=== PATIENT | male | born 1960 | race Caucasian/White ===

== ENCOUNTER 2017-05-29 16:13 | Emergency (ER) | payer MEDICAID ==
--- NOTE | 2017-05-29 16:47 | EDM.PDOC ---
ED HPI GENERAL MEDICAL PROBLEM - General Chief Complaint: Lower Extremity Injury/Pain Stated Complaint: RIGHT ANKLE PAIN FROM FALL Time Seen by Provider: 05/29/17 16:46 Source of Information: Reports: Patient - History of Present Illness INITIAL COMMENTS - FREE TEXT/NARRATIVE: HISTORY AND PHYSICAL: History of present illness: [Patient walking near a local bank on apparently uneven sidewalk, he slipped and fell twisting his ankle unable to bear weight due to this time no head injury or loss of consciousness No fever nausea vomiting chills sweats ] Review of systems: As per history of present illness and below otherwise all systems reviewed and negative. Past medical history: As per history of present illness and as reviewed below otherwise noncontributory. Surgical history: As per history of present illness and as reviewed below otherwise noncontributory. Social history: No reported history of drug or alcohol abuse. Family history: As per history of present illness and as reviewed below otherwise noncontributory. Physical exam: HEENT: Atraumatic, normocephalic, pupils reactive, negative for conjunctival pallor or scleral icterus, mucous membranes moist, throat clear, neck supple, nontender, trachea midline. Lungs: Clear to auscultation, breath sounds equal bilaterally, chest nontender. Heart: S1S2, regular, negative for clicks, rubs, or JVD. Abdomen: Soft, nondistended, nontender. Negative for masses or hepatosplenomegaly. Negative for costovertebral tenderness. Pelvis: Stable nontender. Genitourinary: Deferred. Rectal: Deferred. Extremities: Atraumatic, negative for cords or calf pain. Neurovascular unremarkable. Neuro: Awake, alert, oriented. Cranial nerves II through XII unremarkable. Cerebellum unremarkable. Motor and sensory unremarkable throughout. Exam nonfocal. Left lower extremity: Hip and knee unaffected mild swelling and tenderness over lateral malleolus he does have pain across the dorsum of the foot pulses 2+ with normal capillary refill Entire limb is neurovascularly intact Diagnostics: []Left ankle 3 views Left foot 3 views Therapeutics: []Rest ice ibuprofen Cam boot crutches nonweightbearing Impression: []L ankle pain Definitive disposition and diagnosis as appropriate pending reevaluation and review of above. Left Ankle Pain Score (Numeric/FACES): 9 - Related Data Allergies Allergy/AdvReac Type Severity Reaction Status Date / Time No Known Allergies Allergy Verified 05/29/17 16:45 Home Meds: Home Meds Gabapentin [Neurontin] 600 mg PO TID 05/29/17 [History] traZODone HCl [Trazodone HCl] 150 mg PO BEDTIME 05/29/17 [History] Review of Systems - Review of Systems Review Of Systems: ROS reveals no pertinent complaints other than HPI. ED EXAM, GENERAL - Physical Exam Exam: See Below Course - Vital Signs Last Recorded V/S: Last Vital Signs Temp 98.5 F 05/29/17 16:40 Pulse 78 05/29/17 16:40 Resp 20 05/29/17 16:40 BP 128/92 H 05/29/17 16:40 Pulse Ox 98 05/29/17 16:40 - Orders/Labs/Meds Orders: Active Orders 24 hr Category Date Time Status Ankle Min 3V Lt [CR] Stat Exams 05/29/17 16:46 Taken Foot Comp Min 3V Lt [CR] Stat Exams 05/29/17 16:48 Taken Departure - Departure Time of Disposition: 18:00 Disposition: Home, Self-Care 01 Condition: Good Clinical Impression: Ankle sprain - Discharge Information Referrals: PCP,None [Primary Care Provider] - Forms: ED Department Discharge Additional Instructions: Rest Ice 20 minute intervals 3 times daily as needed Ibuprofen 400-800 mg 3 times daily 7-10 days Cam boot crutches nonweightbearing Follow-up with orthopedist in 2 weeks call for appropriate follow-up at [facility] [address], [address] [place] [address] my orthopedic The following information is given to patients seen in the emergency department who are being discharged to home. This information is to outline your options for follow-up care. We provide all patients seen in our emergency department with a follow-up referral. The need for follow-up, as well as the timing and circumstances, are variable depending upon the specifics of your emergency department visit. If you don't have a primary care physician on staff, we will provide you with a referral. We always advise you to contact your personal physician following an emergency department visit to inform them of the circumstance of the visit and for follow-up with them and/or the need for any referrals to a consulting specialist. The emergency department will also refer you to a specialist when appropriate. This referral assures that you have the opportunity for follow-up care with a specialist. All of these measure are taken in an effort to provide you with optimal care, which includes your follow-up. Under all circumstances we always encourage you to contact your private physician who remains a resource for coordinating your care. When calling for follow-up care, please make the office aware that this follow-up is from your recent emergency room visit. If for any reason you are refused follow-up, please contact the [facility] emergency department at and asked to speak to the emergency department charge nurse. - My Orders Last 24 Hours: My Active Orders 05/29/17 16:46 Ankle Min 3V Lt [CR] Stat 05/29/17 16:48 Foot Comp Min 3V Lt [CR] Stat - Assessment/Plan Last 24 Hours: My Active Orders 05/29/17 16:46 Ankle Min 3V Lt [CR] Stat 05/29/17 16:48 Foot Comp Min 3V Lt [CR] Stat
--- NOTE | 2017-05-30 08:44 | CR ---
EXAM DATE: 05/29/17 PATIENT'S AGE: 57 Patient: CL ALMANZA Facility: [place], [place] Site . Site : 1960 Study: XRay Extremity Left [id number]/13/2017 5:06:44 PM Ordering Physician: Stan Sandoval Final Report: INDICATION: Ankle Pain. Tripped on curb TECHNIQUE: Ankle radiograph 3 views left COMPARISON: None FINDINGS: Bones: Alignment is normal. No acute fractures or aggressive bone lesions identified. Joint spaces: Unremarkable. No ankle joint effusion is seen. Soft tissues: Unremarkable. No radiopaque foreign bodies are seen. IMPRESSION: 1. No acute osseous injuries are noted. Dictated by: Daniele Weiss MD @ 05/29/2017 17:19:19 (Electronic Signature) Report Signed by Proxy. [facility]
--- NOTE | 2017-05-30 08:45 | CR ---
EXAM DATE: 05/29/17 PATIENT'S AGE: 57 Patient: CL ALMANZA Facility: [place], [place] Site . Site : 1960 Study: XRay Extremity Left Foot [id number]/13/2017 5:07:25 PM Ordering Physician: Stan Sandoval Final Report: INDICATION: Foot Pain. Tripped on curb TECHNIQUE: Foot radiograph 3 views left COMPARISON: None FINDINGS: Bones: Alignment is normal. No acute fractures or aggressive bone lesions identified. Moderate diffuse osteopenia is noted. Joint spaces: Unremarkable. No ankle effusion is seen. Soft tissues: Unremarkable. Kager`s fat pad is normal in appearance. The visualized Achilles` tendon is unremarkable. No radiopaque foreign bodies are seen. IMPRESSION: 1. No acute osseous injuries are noted. Dictated by: Daniele Weiss MD @ 05/29/2017 17:21:08 (Electronic Signature) Report Signed by Proxy. NEAL
== END 2017-05-29 18:21 | disposition home or self-care (01) ==
LOC: MW.ED 16:13
DX: S93.402A Sprain of unspecified ligament of left ankle, initial encounter (principal); W19.XXXA Unspecified fall, initial encounter
CPT/HCPCS: 73610-26-LT; 73610-LT; 73630-26-LT; 73630-LT; 99283

== ENCOUNTER 2017-11-03 15:31 | Observation (INO) | payer MEDICAID ==
[2017-11-03] MEDS ORDERED: Sodium Chloride 0.9% 10 ML Syringe FLUSH PRN ×2 (15:33→19:10)
[2017-11-03] MEDS ORDERED: Sodium Chloride 0.9% 2.5 ML Syringe FLUSH PRN ×2 (15:33→19:10)
--- NOTE | 2017-11-03 15:35 | EDM.PDOC ---
ED HPI GENERAL MEDICAL PROBLEM - General Stated Complaint: LT GOING MUNB Time Seen by Provider: 11/03/17 16:45 - History of Present Illness INITIAL COMMENTS - FREE TEXT/NARRATIVE: HISTORY AND PHYSICAL: History of present illness: Patient's 57-year-old white male with history of chronic pain syndrome with current meds include gabapentin and trazodone presents with a concern of left- sided hemiparesthesia 1 day he has no weakness he denies any visual disturbances denies chest pain shortness breath nausea vomiting trauma or other concern. Review of systems: As per history of present illness and below otherwise all systems reviewed and negative. Past medical history: As per history of present illness and as reviewed below otherwise noncontributory. Surgical history: As per history of present illness and as reviewed below otherwise noncontributory. Social history: No reported history of drug or alcohol abuse. Family history: As per history of present illness and as reviewed below otherwise noncontributory. Physical exam: HEENT: Atraumatic, normocephalic, pupils reactive, negative for conjunctival pallor or scleral icterus, mucous membranes moist, throat clear, neck supple, nontender, trachea midline. Lungs: Clear to auscultation, breath sounds equal bilaterally, chest nontender. Heart: S1S2, regular, negative for clicks, rubs, or JVD. Abdomen: Soft, nondistended, nontender. Negative for masses or hepatosplenomegaly. Negative for costovertebral tenderness. Pelvis: Stable nontender. Genitourinary: Deferred. Rectal: Deferred. Extremities: Atraumatic, negative for cords or calf pain. Neurovascular unremarkable. Neuro: Awake, alert, oriented. Cranial nerves II through XII unremarkable. Cerebellum unremarkable. Motor and sensory unremarkable throughout. Exam nonfocal. Diagnostics: CBC CMP troponin PT/INR UA urine drug screen prolactin EKG chest x-ray CT brain Therapeutics: IV O2 monitor Impression: #1 left hemiparesthesia #2 chronic pain syndrome Definitive disposition and diagnosis as appropriate pending reevaluation and review of above. - Related Data Allergies Allergy/AdvReac Type Severity Reaction Status Date / Time No Known Allergies Allergy Verified 05/29/17 16:45 Home Meds: Home Meds Gabapentin [Neurontin] 600 mg PO TID 05/29/17 [History] traZODone HCl [Trazodone HCl] 150 mg PO BEDTIME 05/29/17 [History] Past Medical History HEENT History: Reports: None Cardiovascular History: Reports: None Respiratory History: Reports: None Gastrointestinal History: Reports: None Genitourinary History: Reports: BPH Neurological History: Reports: Concussion Psychiatric History: Reports: Depression Endocrine/Metabolic History: Reports: None Hematologic History: Reports: None Immunologic History: Reports: None Oncologic (Cancer) History: Reports: None Dermatologic History: Reports: None - Infectious Disease History Infectious Disease History: Reports: None - Past Surgical History Head Surgeries/Procedures: Reports: None Male Surgical History: Reports: None Other Musculoskeletal Surgeries/Procedures:: plated in neck and broken back Social & Family History - Caffeine Use Caffeine Use: Reports: Coffee, Soda, Tea ED ROS GENERAL - Review of Systems Review Of Systems: ROS reveals no pertinent complaints other than HPI. ED EXAM, GENERAL - Physical Exam Exam: See Below (See dictation) Course - Orders/Labs/Meds Orders: Active Orders 24 hr Category Date Time Status Cardiac Monitoring [RC] . DIRECTED Care 11/03/17 15:32 Active EKG Documentation Completion [RC] STAT Care 11/03/17 15:32 Active Oxygen Therapy, ED [RC] ASDIRECTED Care 11/03/17 15:32 Active Pulse Oximetry [RC] ASDIRECTED Care 11/03/17 15:32 Active Chest 1V Frontal [CR] Stat Exams 11/03/17 15:33 Taken Head wo Cont [CT] Stat Exams 11/03/17 15:33 Taken COMPREHENSIVE METABOLIC PN,CMP [CHEM] Stat Lab 11/03/17 16:12 Results DRUG SCREEN, URINE [URCHEM] Stat Lab 11/03/17 15:33 Ordered ETHANOL BLOOD MEDICAL [CHEM] Stat Lab 11/03/17 16:12 Results PROLACTIN [CHEM] Stat Lab 11/03/17 16:12 Results TROPONIN I [CHEM] Stat Lab 11/03/17 16:12 Results UA W/MICROSCOPIC [URIN] Stat Lab 11/03/17 15:33 Ordered Sodium Chloride 0.9% [Normal Saline] 1,000 ml Med 11/03/17 15:45 Active IV STAT Sodium Chloride 0.9% [Saline Flush] Med 11/03/17 15:33 Active 10 ml FLUSH ASDIRECTED PRN Sodium Chloride 0.9% [Saline Flush] Med 11/03/17 15:33 Active 2.5 ml FLUSH ASDIRECTED PRN Saline Lock Insert [OM.PC] Stat Oth 11/03/17 15:32 Ordered Medication Orders Sodium Chloride (Normal Saline) 1,000 mls @ 125 mls/hr IV STAT TRISTEN Last Admin: 11/03/17 16:34 Dose: 125 mls/hr Sodium Chloride (Saline Flush) 10 ml FLUSH ASDIRECTED PRN PRN Reason: Keep Vein Open Sodium Chloride (Saline Flush) 2.5 ml FLUSH ASDIRECTED PRN PRN Reason: Keep Vein Open Labs: Laboratory Tests 11/03/17 11/03/17 11/03/17 Range/Units 16:12 16:12 16:12 WBC 6.21 (4.0-11.0) K/uL RBC 5.80 (4.50-5.90) M/uL Hgb 16.1 (13.0-17.0) g/dL Hct 47.6 (38.0-50.0) % MCV 82.1 (80.0-98.0) fL MCH 27.8 (27.0-32.0) pg MCHC 33.8 (31.0-37.0) g/dL RDW Std Deviation 45.8 (28.0-62.0) fl RDW Coeff of Lola 16 H (11.0-15.0) % Plt Count 195 (150-400) K/uL MPV 9.60 (7.40-12.00) fL Neut % (Auto) 58.2 (48.0-80.0) % Lymph % (Auto) 28.3 (16.0-40.0) % [place] % (Auto) 10.3 (0.0-15.0) % Eos % (Auto) 2.7 (0.0-7.0) % Baso % (Auto) 0.5 (0.0-1.5) % Neut # (Auto) 3.6 (1.4-5.7) K/uL Lymph # (Auto) 1.8 (0.6-2.4) K/uL [place] # (Auto) 0.6 (0.0-0.8) K/uL Eos # (Auto) 0.2 (0.0-0.7) K/uL Baso # (Auto) 0.0 (0.0-0.1) K/uL Nucleated RBC % 0.0 /100WBC Nucleated RBCs # 0 K/uL INR 1.02 Sodium 137 (136-148) mmol/L Potassium 4.3 (3.5-5.1) mmol/L Chloride 103 (98-107) mmol/L Carbon Dioxide 29.7 (21.0-32.0) mmol/L BUN 13 (7.0-18.0) mg/dL Creatinine 1.1 (0.8-1.3) mg/dL Est Cr Clr Drug Dosing TNP Estimated GFR (MDRD) > 60.0 ml/min Glucose 79 (74-106) mg/dL Calcium 9.0 (8.5-10.1) mg/dL Total Bilirubin 0.6 (0.2-1.0) mg/dL AST 17 (15-37) IU/L ALT 17 (14-63) IU/L Alkaline Phosphatase 88 (46-116) U/L Troponin I < 0.050 (0.000-0.056) ng/mL Total Protein 7.6 (6.4-8.2) g/dL Albumin 4.1 (3.4-5.0) g/dL Globulin 3.5 (2.0-3.5) g/dL Albumin/Globulin Ratio 1.2 L (1.3-2.8) Ethyl Alcohol < 3.0 mg/dL Meds: Medications Generic Name Dose Route Start Last Admin Trade Name Freq PRN Reason Stop Dose Admin Sodium Chloride 1,000 mls @ 125 mls/hr 11/03/17 15:45 11/03/17 16:34 Normal Saline IV 125 mls/hr STAT TRISTEN Administration Sodium Chloride 10 ml 11/03/17 15:33 Saline Flush FLUSH ASDIRECTED PRN Keep Vein Open Sodium Chloride 2.5 ml 11/03/17 15:33 Saline Flush FLUSH ASDIRECTED PRN Keep Vein Open Departure - Departure Time of Disposition: 16:45 Disposition: Refer to Observation Condition: Good Clinical Impression: Hemiparesthesia, Chronic pain syndrome - Discharge Information - My Orders Last 24 Hours: My Active Orders 11/03/17 15:32 Cardiac Monitoring [RC] . DIRECTED EKG Documentation Completion [RC] STAT Oxygen Therapy, ED [RC] ASDIRECTED Pulse Oximetry [RC] ASDIRECTED Saline Lock Insert [OM.PC] Stat 11/03/17 15:33 Chest 1V Frontal [CR] Stat Head wo Cont [CT] Stat DRUG SCREEN, URINE [URCHEM] Stat UA W/MICROSCOPIC [URIN] Stat Sodium Chloride 0.9% [Saline Flush] 10 ml FLUSH ASDIRECTED PRN Sodium Chloride 0.9% [Saline Flush] 2.5 ml FLUSH ASDIRECTED PRN 11/03/17 15:45 Sodium Chloride 0.9% [Normal Saline] 1,000 ml IV STAT 11/03/17 16:12 COMPREHENSIVE METABOLIC PN,CMP [CHEM] Stat ETHANOL BLOOD MEDICAL [CHEM] Stat PROLACTIN [CHEM] Stat TROPONIN I [CHEM] Stat - Assessment/Plan Last 24 Hours: My Active Orders 11/03/17 15:32 Cardiac Monitoring [RC] . DIRECTED EKG Documentation Completion [RC] STAT Oxygen Therapy, ED [RC] ASDIRECTED Pulse Oximetry [RC] ASDIRECTED Saline Lock Insert [OM.PC] Stat 11/03/17 15:33 Chest 1V Frontal [CR] Stat Head wo Cont [CT] Stat DRUG SCREEN, URINE [URCHEM] Stat UA W/MICROSCOPIC [URIN] Stat Sodium Chloride 0.9% [Saline Flush] 10 ml FLUSH ASDIRECTED PRN Sodium Chloride 0.9% [Saline Flush] 2.5 ml FLUSH ASDIRECTED PRN 11/03/17 15:45 Sodium Chloride 0.9% [Normal Saline] 1,000 ml IV STAT 11/03/17 16:12 COMPREHENSIVE METABOLIC PN,CMP [CHEM] Stat ETHANOL BLOOD MEDICAL [CHEM] Stat PROLACTIN [CHEM] Stat TROPONIN I [CHEM] Stat
[2017-11-03] MEDS ORDERED: Sodium Chloride 0.9% 1,000 ML IV SCH (15:45)
[2017-11-03 16:38] LABS: CHLORIDE,CL 103 mmol/L (98-107); SODIUM,NA 137 mmol/L (136-148)
[2017-11-03] MEDS ORDERED: Albuterol/Ipratropium 3.0-0.5 MG/3 ML Neb Soln NEB PRN (19:10)
[2017-11-03] MEDS ORDERED: Morphine 10 MG/ML Syringe IVPUSH PRN (19:10)
[2017-11-03] MEDS ORDERED: Ondansetron 4 MG/2 ML SDV IVPUSH PRN (19:10)
[2017-11-03] MEDS ORDERED: Enoxaparin 40 MG/0.4 ML Syringe SUBCUT SCH (19:15)
--- NOTE | 2017-11-03 19:17 | PCM.HP ---
H&P History of Present Illness - General Date of Service: 11/03/17 Admit Problem/Dx: Admission Diagnosis/Problem Admission Diagnosis/Problem Hemiparesthesia Source of Information: Patient History Limitations: Reports: Other (patient is poor historian) - History of Present Illness Initial Comments - Free Text/Narative: Patient 57 y old male presented to office due to left sided weakness that started yesterday around 2 pm 4/10 intensity localized left side of face and left arm and left lower extremity and lasted throughout the night. Patient denies similar symptoms in the past , no muscle weakness , no blurry vision or trouble speaking. Has mild headache now , says he does not suffer from migraine headache. Patient had a neck surgery and steel plate in the neck 20 y ago, status post slip and fall.Denies trauma on the left side Duration of Symptoms: Reports: Hour(s): Left Upper Pain Score (Numeric/FACES): 0 - Related Data Allergies/Adverse Reactions: Allergies Allergy/AdvReac Type Severity Reaction Status Date / Time No Known Allergies Allergy Verified 05/29/17 16:45 Home Medications: Home Meds Gabapentin [Neurontin] 600 mg PO TID 05/29/17 [History] traZODone HCl [Trazodone HCl] 150 mg PO BEDTIME 05/29/17 [History] Aspirin 325 mg PO DAILY tablet 11/04/17 [Rx] Nicotine [Habitrol] 14 mg TRDERM DAILY #10 patch 11/04/17 [Rx] atorvaSTATin [Lipitor] 40 mg PO BEDTIME #30 tablet 11/04/17 [Rx] Past Medical History HEENT History: Reports: None Cardiovascular History: Reports: None Respiratory History: Reports: None Gastrointestinal History: Reports: None Genitourinary History: Reports: BPH Neurological History: Reports: Concussion Psychiatric History: Reports: Depression Endocrine/Metabolic History: Reports: None Hematologic History: Reports: None Immunologic History: Reports: None Oncologic (Cancer) History: Reports: None Dermatologic History: Reports: None - Infectious Disease History Infectious Disease History: Reports: None - Past Surgical History Head Surgeries/Procedures: Reports: None Male Surgical History: Reports: None Endocrine Surgical History: Reports: None Other Musculoskeletal Surgeries/Procedures:: plate in neck and broken back Social & Family History - Family History Family Medical History: Noncontributory - Tobacco Use Smoking Status *Q: Current Some Day Smoker Years of Tobacco use: 47 Packs/Tins Daily: 0.5 Used Tobacco, but Quit: No Second Hand Smoke Exposure: No - Caffeine Use Caffeine Use: Reports: Coffee, Soda, Tea - Alcohol Use Date of Last Drink: 10/31/17 - Recreational Drug Use Recreational Drug Use: Yes Drug Use in Last 12 Months: Yes Recreational Drug Type: Reports: Marijuana/Hashish Recreational Drug Use Frequency: Weekly Recreational Drug Last Use: t-1 H&P Review of Systems - Review of Systems: Review Of Systems: See Below General: Reports: No Symptoms HEENT: Reports: No Symptoms Pulmonary: Reports: No Symptoms Cardiovascular: Reports: No Symptoms Gastrointestinal: Reports: No Symptoms Genitourinary: Reports: No Symptoms Musculoskeletal: Reports: No Symptoms Skin: Reports: No Symptoms Psychiatric: Reports: No Symptoms Neurological: Reports: Numbness (left side of the body), Paresthesia Hematologic/Lymphatic: Reports: No Symptoms Immunologic: Reports: No Symptoms Exam - Exam Exam: See Below - Vital Signs Vital Signs: Last Vital Signs Temp 97.5 F 11/03/17 17:20 Pulse 70 11/03/17 17:20 Resp 16 11/03/17 17:20 BP 134/92 H 11/03/17 17:20 Pulse Ox 99 11/03/17 17:20 Weight: 185 lb - Exam Quality Assessment: Supplemental Oxygen General: Alert, Oriented HEENT: Conjunctiva Clear, EACs Clear, Hearing Intact, Mucosa Moist & [place] Neck: Supple, Trachea Midline Lungs: Clear to Auscultation, Normal Respiratory Effort Cardiovascular: Regular Rate, Regular Rhythm, Normal S1, Normal S2 GI/Abdominal Exam: Normal Bowel Sounds, Soft, Non-Tender, No Organomegaly, No Distention (Male) Exam: No Hernia Back Exam: Normal Inspection Extremities: Normal Inspection Skin: Warm, Dry Neurological: Cranial Nerves Intact Neuro Extensive - Mental Status: Alert, Oriented x3, Normal Mood/Affect Neuro Extensive - Motor, Sensory, Reflexes: CN II-XII Intact, Abnormal Sensation. No: Tongue Deviation (L), Facial palsy (L), Facial Palsy (R), Facial Palsy w Forehead, Facial Palsy wo Forehead, Hemeplagia (R), Hemeplagia (L ), Pronator Drift (R), Abnormal Finger to Nose, Abnormal Heel to [place] Psychiatric: Alert - Patient Data Lab Results Last 24 hrs: Laboratory Results - last 24 hr 11/03/17 11/03/17 11/03/17 Range/Units 16:12 16:12 16:12 WBC 6.21 (4.0-11.0) K/uL RBC 5.80 (4.50-5.90) M/uL Hgb 16.1 (13.0-17.0) g/dL Hct 47.6 (38.0-50.0) % MCV 82.1 (80.0-98.0) fL MCH 27.8 (27.0-32.0) pg MCHC 33.8 (31.0-37.0) g/dL RDW Std Deviation 45.8 (28.0-62.0) fl RDW Coeff of Lola 16 H (11.0-15.0) % Plt Count 195 (150-400) K/uL MPV 9.60 (7.40-12.00) fL Neut % (Auto) 58.2 (48.0-80.0) % Lymph % (Auto) 28.3 (16.0-40.0) % [place] % (Auto) 10.3 (0.0-15.0) % Eos % (Auto) 2.7 (0.0-7.0) % Baso % (Auto) 0.5 (0.0-1.5) % Neut # (Auto) 3.6 (1.4-5.7) K/uL Lymph # (Auto) 1.8 (0.6-2.4) K/uL [place] # (Auto) 0.6 (0.0-0.8) K/uL Eos # (Auto) 0.2 (0.0-0.7) K/uL Baso # (Auto) 0.0 (0.0-0.1) K/uL Nucleated RBC % 0.0 /100WBC Nucleated RBCs # 0 K/uL INR 1.02 Sodium 137 (136-148) mmol/L Potassium 4.3 (3.5-5.1) mmol/L Chloride 103 (98-107) mmol/L Carbon Dioxide 29.7 (21.0-32.0) mmol/L BUN 13 (7.0-18.0) mg/dL Creatinine 1.1 (0.8-1.3) mg/dL Est Cr Clr Drug Dosing TNP Estimated GFR (MDRD) > 60.0 ml/min Glucose 79 (74-106) mg/dL Calcium 9.0 (8.5-10.1) mg/dL Total Bilirubin 0.6 (0.2-1.0) mg/dL AST 17 (15-37) IU/L ALT 17 (14-63) IU/L Alkaline Phosphatase 88 (46-116) U/L Troponin I < 0.050 (0.000-0.056) ng/mL Total Protein 7.6 (6.4-8.2) g/dL Albumin 4.1 (3.4-5.0) g/dL Globulin 3.5 (2.0-3.5) g/dL Albumin/Globulin Ratio 1.2 L (1.3-2.8) Prolactin 2 (1-23) ng/mL Urine Color Urine Appearance Urine pH (5.0-8.0) Ur Specific [place] (1.001-1.035) Urine Protein (NEGATIVE) mg/dL Urine Glucose (UA) (NEGATIVE) mg/dL Urine Ketones (NEGATIVE) mg/dL Urine Occult Blood (NEGATIVE) Urine Nitrite (NEGATIVE) Urine Bilirubin (NEGATIVE) Urine Urobilinogen (<2.0) EU/dL Ur Leukocyte Esterase (NEGATIVE) Urine RBC (0-2/HPF) Urine WBC (0-5/HPF) Ur Epithelial Cells (NONE-FEW) Urine Bacteria (NEGATIVE) Urine Opiates Screen (NEGATIVE) Ur Oxycodone Screen (NEGATIVE) Urine Methadone Screen (NEGATIVE) Ur Barbiturates Screen (NEGATIVE) Ur Phencyclidine Scrn (NEGATIVE) Ur Amphetamine Screen (NEGATIVE) U Methamphetamines Scrn (NEGATIVE) U Benzodiazepines Scrn (NEGATIVE) U Cocaine Metab Screen (NEGATIVE) U Marijuana (THC) Screen (NEGATIVE) Ethyl Alcohol < 3.0 mg/dL 11/03/17 11/03/17 Range/Units 17:07 17:07 WBC (4.0-11.0) K/uL RBC (4.50-5.90) M/uL Hgb (13.0-17.0) g/dL Hct (38.0-50.0) % MCV (80.0-98.0) fL MCH (27.0-32.0) pg MCHC (31.0-37.0) g/dL RDW Std Deviation (28.0-62.0) fl RDW Coeff of Lola (11.0-15.0) % Plt Count (150-400) K/uL MPV (7.40-12.00) fL Neut % (Auto) (48.0-80.0) % Lymph % (Auto) (16.0-40.0) % [place] % (Auto) (0.0-15.0) % Eos % (Auto) (0.0-7.0) % Baso % (Auto) (0.0-1.5) % Neut # (Auto) (1.4-5.7) K/uL Lymph # (Auto) (0.6-2.4) K/uL [place] # (Auto) (0.0-0.8) K/uL Eos # (Auto) (0.0-0.7) K/uL Baso # (Auto) (0.0-0.1) K/uL Nucleated RBC % /100WBC Nucleated RBCs # K/uL INR Sodium (136-148) mmol/L Potassium (3.5-5.1) mmol/L Chloride (98-107) mmol/L Carbon Dioxide (21.0-32.0) mmol/L BUN (7.0-18.0) mg/dL Creatinine (0.8-1.3) mg/dL Est Cr Clr Drug Dosing Estimated GFR (MDRD) ml/min Glucose (74-106) mg/dL Calcium (8.5-10.1) mg/dL Total Bilirubin (0.2-1.0) mg/dL AST (15-37) IU/L ALT (14-63) IU/L Alkaline Phosphatase (46-116) U/L Troponin I (0.000-0.056) ng/mL Total Protein (6.4-8.2) g/dL Albumin (3.4-5.0) g/dL Globulin (2.0-3.5) g/dL Albumin/Globulin Ratio (1.3-2.8) Prolactin (1-23) ng/mL Urine Color YELLOW Urine Appearance CLEAR Urine pH 6.5 (5.0-8.0) Ur Specific [place] <= 1.005 (1.001-1.035) Urine Protein NEGATIVE (NEGATIVE) mg/dL Urine Glucose (UA) NEGATIVE (NEGATIVE) mg/dL Urine Ketones NEGATIVE (NEGATIVE) mg/dL Urine Occult Blood NEGATIVE (NEGATIVE) Urine Nitrite NEGATIVE (NEGATIVE) Urine Bilirubin NEGATIVE (NEGATIVE) Urine Urobilinogen 0.2 (<2.0) EU/dL Ur Leukocyte Esterase NEGATIVE (NEGATIVE) Urine RBC 0-1 (0-2/HPF) Urine WBC 1-3 (0-5/HPF) Ur Epithelial Cells RARE (NONE-FEW) Urine Bacteria RARE (NEGATIVE) Urine Opiates Screen NEGATIVE (NEGATIVE) Ur Oxycodone Screen NEGATIVE (NEGATIVE) Urine Methadone Screen NEGATIVE (NEGATIVE) Ur Barbiturates Screen NEGATIVE (NEGATIVE) Ur Phencyclidine Scrn NEGATIVE (NEGATIVE) Ur Amphetamine Screen NEGATIVE (NEGATIVE) U Methamphetamines Scrn NEGATIVE (NEGATIVE) U Benzodiazepines Scrn NEGATIVE (NEGATIVE) U Cocaine Metab Screen NEGATIVE (NEGATIVE) U Marijuana (THC) Screen NEGATIVE (NEGATIVE) Ethyl Alcohol mg/dL Result Diagrams: 11/04/17 04:56 11/04/17 04:56 - Problem List (1) Hemiparesthesia SNOMED Code(s): 22454150 ICD Code: R20.2 - PARESTHESIA OF SKIN Status: Acute (2) Left arm numbness SNOMED Code(s): 400030398 ICD Code: R20.0 - ANESTHESIA OF SKIN Status: Acute (3) Left facial numbness SNOMED Code(s): 859946137 ICD Code: R20.0 - ANESTHESIA OF SKIN Status: Acute (4) Left leg numbness SNOMED Code(s): 967183268 ICD Code: R20.0 - ANESTHESIA OF SKIN Status: Acute (5) H/O cervical spine surgery SNOMED Code(s): 405299004 ICD Code: Z98.890 - OTHER SPECIFIED POSTPROCEDURAL STATES Status: Acute Problem List Initiated/Reviewed/Updated: Yes Orders Last 24hrs: Active Orders 24 hr Category Date Time Status Patient Status [ADT] Stat ADT 11/03/17 16:47 Active Cardiac Monitoring [RC] . DIRECTED Care 11/03/17 15:32 Active EKG Documentation Completion [RC] STAT Care 11/03/17 15:32 Active Oxygen Therapy [RC] PRN Care 11/03/17 19:10 Ordered Oxygen Therapy, ED [RC] ASDIRECTED Care 11/03/17 15:32 Active Pulse Oximetry [RC] ASDIRECTED Care 11/03/17 15:32 Active Pulse Oximetry [RC] PRN Care 11/03/17 19:10 Ordered RT Aerosol Therapy [RC] ASDIRECTED Care 11/03/17 19:13 Ordered Up ad [place] [RC] ASDIRECTED Care 11/03/17 19:10 Ordered VTE/DVT Education [RC] PER UNIT ROUTINE Care 11/03/17 19:10 Ordered Vital Signs [RC] Q4H Care 11/03/17 19:10 Ordered OT Evaluation and Treatment [CONS] Routine Cons 11/03/17 19:10 Ordered PT Evaluation and Treatment [CONS] Routine Cons 11/03/17 19:10 Ordered Nothing per Oral Now Diet [DIET] Diet 11/03/17 Breakfast Ordered Chest 1V Frontal [CR] Stat Exams 11/03/17 15:33 Taken Head wo Cont [CT] Stat Exams 11/03/17 15:33 Taken BASIC METABOLIC PANEL,BMP [CHEM] AM Lab 11/04/17 05:11 Ordered CBC WITH AUTO DIFF [HEME] AM Lab 11/04/17 05:11 Ordered DRUG SCREEN, URINE [URCHEM] Stat Lab 11/03/17 17:07 Ordered UA W/MICROSCOPIC [URIN] Stat Lab 11/03/17 17:07 Ordered Albuterol/Ipratropium [DuoNeb 3.0-0.5 MG/3 ML] Med 11/03/17 19:10 Ordered 3 ml NEB Q4HRRT PRN Aspirin Med 11/03/17 19:15 Ordered 325 mg PO DAILY Enoxaparin [Lovenox] Med 11/03/17 19:15 Ordered 40 mg SUBCUT Q24H Morphine Med 11/03/17 19:10 Ordered 2 mg IVPUSH Q2H PRN Ondansetron [Zofran] Med 11/03/17 19:10 Ordered 4 mg IVPUSH Q4H PRN Sodium Chloride 0.9% [Normal Saline] 1,000 ml Med 11/03/17 15:45 Active IV STAT Sodium Chloride 0.9% [Saline Flush] Med 11/03/17 15:33 Active 10 ml FLUSH ASDIRECTED PRN Sodium Chloride 0.9% [Saline Flush] Med 11/03/17 19:10 Ordered 10 ml FLUSH ASDIRECTED PRN Sodium Chloride 0.9% [Saline Flush] Med 11/03/17 15:33 Active 2.5 ml FLUSH ASDIRECTED PRN Sodium Chloride 0.9% [Saline Flush] Med 11/03/17 19:10 Ordered 2.5 ml FLUSH ASDIRECTED PRN atorvaSTATin [Lipitor] Med 11/03/17 21:00 Ordered 40 mg PO BEDTIME Peripheral IV Insertion Adult [OM.PC] Routine Oth 11/03/17 19:10 Ordered Saline Lock Insert [OM.PC] Stat Oth 11/03/17 15:32 Ordered Sequential Compression Device [OM.PC] Per Unit Routine Oth 11/03/17 19:11 Ordered Resuscitation Status Routine Resus Stat 11/03/17 19:10 Ordered Medication Orders Albuterol/Ipratropium (Duoneb 3.0-0.5 Mg/3 Ml) 3 ml NEB Q4HRRT PRN PRN Reason: Shortness Of Breath/wheezing Enoxaparin Sodium (Lovenox) 40 mg SUBCUT Q24H TRISTEN Sodium Chloride (Normal Saline) 1,000 mls @ 125 mls/hr IV STAT TRISTEN Last Admin: 11/03/17 16:34 Dose: 125 mls/hr Morphine Sulfate (Morphine) 2 mg IVPUSH Q2H PRN PRN Reason: Pain (severe 7-10) Stop: 11/04/17 19:12 Ondansetron HCl (Zofran) 4 mg IVPUSH Q4H PRN PRN Reason: Nausea Sodium Chloride (Saline Flush) 10 ml FLUSH ASDIRECTED PRN PRN Reason: Keep Vein Open Sodium Chloride (Saline Flush) 2.5 ml FLUSH ASDIRECTED PRN PRN Reason: Keep Vein Open Sodium Chloride (Saline Flush) 10 ml FLUSH ASDIRECTED PRN PRN Reason: Keep Vein Open Sodium Chloride (Saline Flush) 2.5 ml FLUSH ASDIRECTED PRN PRN Reason: Keep Vein Open Assessment/Plan Comment:: Ct head - negative for acute disease Assessment and plan: left side numbness : will admit patient to telemetry , deferential diagnosis is CVA, mute migraine cervical pathology , neuropathy Patient at home on gabapentine 600 mg po TID . Will start patient on aspirin 325 mg po daily , lipitor 40 mg po daily , speach and swallow evaluation , if passed will start patient on diet. Will do neurochecks q 4 h, cardiac echo , carotid Doppler , lipid profile , hemoglobin A1c
[2017-11-03] MEDS: Aspirin 325 MG Tab PO SCH (20:18)
[2017-11-03] MEDS ORDERED: atorvaSTATin 40 MG Tab PO SCH (21:00)
[2017-11-03] MEDS ORDERED: traZODone 50 MG Tab PO SCH (21:00)
[2017-11-03] MEDS: Gabapentin 300 MG Cap PO SCH (22:31)
[2017-11-03] MEDS: Nicotine 14 MG/24 Hr Patch TRDERM SCH (22:31)
[2017-11-04] MEDS ORDERED: Sodium Chloride 0.9% 1,000 ML IV SCH (01:30)
[2017-11-04 05:58] LABS: CHLORIDE,CL 110 mmol/L (98-107); SODIUM,NA 141 mmol/L (136-148)
[2017-11-04] MEDS: Gabapentin 300 MG Cap PO SCH ×2 (06:49→13:07)
[2017-11-04] MEDS: Nicotine 14 MG/24 Hr Patch TRDERM SCH (08:39)
[2017-11-04] MEDS: Aspirin 325 MG Tab PO SCH (08:39)
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
--- NOTE | 2017-11-04 12:51 | CT ---
EXAMINATION: CT cervical spine HISTORY: Numbness COMPARISON: None TECHNIQUE: Axial CT images obtained through the cervical spine without contrast. Coronal and sagittal reconstructions obtained. FINDINGS: There is grade 1 retrolisthesis of C4 on C5. Anterior cervical fusion hardware is noted C5- C6 with anterior osseous bridging. Small osteophyte disc complexes noted at C3-C4 and C4-C5 with unco vertebral hypertrophy bilaterally. There is no fracture or acute osseous abnormality. Bone mineraliza tion is otherwise normal. The paravertebral soft tissues appear normal. Moderate fluid within the eso phagus. Lung apices are clear. IMPRESSION: 1. Degenerative and postoperative changes noted within the cervical spine without acute findings. 2. The esophagus appears fluid-filled and patulous, correlate clinically for achalasia and/or reflux.
--- NOTE | 2017-11-04 14:43 | CT ---
EXAM DATE: 11/03/17 PATIENT'S AGE: 57 Patient: CL ALMANZA Facility: [place], [place] Site . Site : 1960 Study: CT Head STROKE PROTOCOL [id number]/20/2018 3:44:35 PM Ordering Physician: Doctor Michael Final Report: HISTORY: Left arm and left leg numbness. TECHNIQUE: Noncontrast head CT. COMPARISON: No prior. FINDINGS: There is no acute ischemic infarct or acute intracranial hemorrhage. No mass effect or midline shift. No hydrocephalus. No extra-axial collection. No acute loss of dwyer-white differentiation. No skull fracture. Mastoid air cells are clear. Small mucous retention cyst or polyps within the maxillary sinuses. Paranasal sinuses are otherwise clear. IMPRESSION: No acute intracranial disease. Dictated by Yvan Major MD @ 11/03/2017 3:48:02 PM Please note that all CT scans at this facility use dose modulation, iterative reconstruction, and/or weight-based dosing when appropriate to reduce radiation dose to as low as reasonably achievable. Dictated by: Yvan Major MD @ 11/03/2017 15:48:09 (Electronic Signature) Report Signed by Proxy. [facility]
--- NOTE | 2017-11-04 14:45 | CR ---
EXAM DATE: 11/03/17 PATIENT'S AGE: 57 Patient: CL ALMANZA Facility: [place], [place] Site . Site : 1960 Study: XRay Chest [id number]/20/2018 3:52:18 PM Ordering Physician: Doctor Michael Final Report: HISTORY: Stroke. TECHNIQUE: One view of the chest. COMPARISON: No prior. FINDINGS: The cardiac size is within normal limits accounting for technique. There is no pulmonary vascular redistribution. No lung consolidation or pulmonary edema. No pneumothorax or pleural effusion. Remote fractures of a few right lateral ribs. IMPRESSION: No acute disease. Dictated by Yvan Major MD @ 11/03/2017 4:21:20 PM Dictated by: Yvan Major MD @ 11/03/2017 16:21:23 (Electronic Signature) Report Signed by Proxy. NEAL
--- NOTE | 2017-11-04 15:47 | US ---
EXAMINATION: Carotid US with dwyer scale and duplex imaging. HISTORY: Left arm numbness FINDINGS: Ultrasound examination of bilateral cervical carotid arteries was performed using dwyer scale and dupl ex imaging. No significant atheromatous changes noted within the carotid arteries bilaterally. Ante grade flow noted within the vertebrals. These are the peak velocities in cm per second (systole), right and left respectively, by a comma: CCA (common carotid artery) - 104, 118 ICA (internal carotid artery) - 70, 92 ECA (External carotid artery) - 106, 92 ICA/CCA systolic ratio Right - 0.7 Left - 0.8 IMPRESSION: No significant atheromatous changes are elevated velocities noted within the carotid arteries izabella castro.
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
--- NOTE | 2017-11-06 16:03 | ECHO ---
EXAM DATE: 11/03/17 PATIENT'S AGE: 57 The echocardiogram report can be seen in this patient's EMR (Electronic Medical Record) in the Reports section. The report has also been scanned into PACs. NEAL
== END 2017-11-04 17:00 | disposition home or self-care (01) ==
LOC: MW.ED 15:31 → MW.MS 16:47 → MW.ED 17:05
PROVIDERS: ADMIT Internal Medicine; ATTEND Internal Medicine
DX: R20.2 Paresthesia of skin (principal); R20.0 Anesthesia of skin; N40.0 Benign prostatic hyperplasia without lower urinary tract symptoms; F32.9 Major depressive disorder, single episode, unspecified; F17.210 Nicotine dependence, cigarettes, uncomplicated; Z91.81 History of falling; Z98.890 Other specified postprocedural states; Z87.898 Personal history of other specified conditions; Z79.899 Other long term (current) drug therapy; Z79.82 Long term (current) use of aspirin
CPT/HCPCS: 36415; 70450; 71045; 72125; 80048; 80053; 80061; 80305; 81001; 83036; 84146; 84484; 85025; 85610; 93005; 93306; 93880; 96360; 97161; 97165; 99285; A9270; G0480; J1650; J7040

== ENCOUNTER 2018-02-01 14:08 | Emergency (ER) | payer MEDICAID ==
--- NOTE | 2018-02-01 14:37 | EDM.PDOC ---
ED HPI GENERAL MEDICAL PROBLEM - General Chief Complaint: Respiratory Problem Stated Complaint: COUGH Time Seen by Provider: 02/01/18 14:36 Source of Information: Reports: Patient History Limitations: Reports: No Limitations - History of Present Illness INITIAL COMMENTS - FREE TEXT/NARRATIVE: HISTORY AND PHYSICAL: History of present illness: Patient is a 58-year-old male here with a cough 3 weeks. States he is coughing up phlegm. Denies any shortness of breath or chest pain. He denies any fevers or chills, nausea, vomiting, diarrhea, abdominal pain. Patient states he smokes occasionally but denies any history of COPD or asthma. Review of systems: As per history of present illness and below otherwise all systems reviewed and negative. Past medical history: As per history of present illness and as reviewed below otherwise noncontributory. Surgical history: As per history of present illness and as reviewed below otherwise noncontributory. Social history: No reported history of drug or alcohol abuse. Family history: As per history of present illness and as reviewed below otherwise noncontributory. Physical exam: General: Patient sitting comfortably in no acute distress HEENT: Atraumatic, normocephalic, pupils reactive, negative for conjunctival pallor or scleral icterus, mucous membranes moist, throat clear, neck supple, nontender, trachea midline. Lungs: Clear to auscultation, breath sounds equal bilaterally, chest nontender. Heart: S1S2, regular, negative for clicks, rubs, or JVD. Abdomen: Soft, nondistended, nontender. Negative for masses or hepatosplenomegaly. Negative for costovertebral tenderness. Pelvis: Stable nontender. Genitourinary: Deferred. Rectal: Deferred. Extremities: Atraumatic, negative for cords or calf pain. Neurovascular unremarkable. Neuro: Awake, alert, oriented. Cranial nerves II through XII unremarkable. Cerebellum unremarkable. Motor and sensory unremarkable throughout. Exam nonfocal. Notes: Diagnostics: Chest x-ray Therapeutics: [] Impression: Acute bronchitis Plan: 1. Take antibiotic and use Ventolin inhaler as instructed 2. Follow-up with primary care provider 3. Return to ED as needed as discussed Definitive disposition and diagnosis as appropriate pending reevaluation and review of above. chest Pain Score (Numeric/FACES): 6 - Related Data Allergies Allergy/AdvReac Type Severity Reaction Status Date / Time No Known Allergies Allergy Verified 02/01/18 14:22 Home Meds: Home Meds Aspirin 325 mg PO DAILY tablet 11/04/17 [Rx] Albuterol [Ventolin HFA] 1 puff .XX Q4H #1 inhaler 02/01/18 [Rx] Azithromycin [Zithromax] 250 mg PO DAILY #1 dosepk 02/01/18 [Rx] Past Medical History HEENT History: Reports: None Cardiovascular History: Reports: High Cholesterol Respiratory History: Reports: Other (See Below) Other Respiratory History: pneumonia Gastrointestinal History: Reports: None Genitourinary History: Reports: BPH Neurological History: Reports: Concussion, CVA Psychiatric History: Reports: Depression Endocrine/Metabolic History: Reports: None Hematologic History: Reports: None Immunologic History: Reports: None Oncologic (Cancer) History: Reports: None Dermatologic History: Reports: None - Infectious Disease History Infectious Disease History: Reports: None - Past Surgical History Head Surgeries/Procedures: Reports: None Male Surgical History: Reports: None Endocrine Surgical History: Reports: None Other Musculoskeletal Surgeries/Procedures:: plate in neck and broken back Social & Family History - Family History Family Medical History: Noncontributory - Caffeine Use Caffeine Use: Reports: Coffee, Soda, Tea - Recreational Drug Use Recreational Drug Use: Yes Drug Use in Last 12 Months: Yes Recreational Drug Type: Reports: Marijuana/Hashish ED ROS GENERAL - Review of Systems Review Of Systems: ROS reveals no pertinent complaints other than HPI. ED EXAM, GENERAL - Physical Exam Exam: See Below (See dictation) Course - Vital Signs Last Recorded V/S: Last Vital Signs Temp 36.2 C 02/01/18 14:08 Pulse 83 02/01/18 14:08 Resp 18 02/01/18 14:08 BP 121/82 02/01/18 14:08 Pulse Ox 98 02/01/18 14:08 - Orders/Labs/Meds Orders: Active Orders 24 hr Category Date Time Status Chest 2V [CR] Stat Exams 02/01/18 14:36 Taken Departure - Departure Time of Disposition: 15:17 Disposition: Home, Self-Care 01 Condition: Good Clinical Impression: Acute bronchitis - Discharge Information Prescriptions: Albuterol [Ventolin HFA] 1 puff .XX Q4H #1 inhaler Azithromycin [Zithromax] 250 mg PO DAILY #1 dosepk Referrals: PCP,None [Primary Care Provider] - Forms: ED Department Discharge Additional Instructions: The following information is given to patients seen in the emergency department who are being discharged to home. This information is to outline your options for follow-up care. We provide all patients seen in our emergency department with a follow-up referral. The need for follow-up, as well as the timing and circumstances, are variable depending upon the specifics of your emergency department visit. If you don't have a primary care physician on staff, we will provide you with a referral. We always advise you to contact your personal physician following an emergency department visit to inform them of the circumstance of the visit and for follow-up with them and/or the need for any referrals to a consulting specialist. The emergency department will also refer you to a specialist when appropriate. This referral assures that you have the opportunity for follow-up care with a specialist. All of these measure are taken in an effort to provide you with optimal care, which includes your follow-up. Under all circumstances we always encourage you to contact your private physician who remains a resource for coordinating your care. When calling for follow-up care, please make the office aware that this follow-up is from your recent emergency room visit. If for any reason you are refused follow-up, please contact the [facility] Emergency Department at and asked to speak to the emergency department charge nurse. [facility] [address] [place] [address] [place] [address] 1. Take antibiotic and use Ventolin inhaler as instructed 2. Follow-up with primary care provider 3. Return to ED as needed as discussed - My Orders Last 24 Hours: My Active Orders 02/01/18 14:36 Chest 2V [CR] Stat - Assessment/Plan Last 24 Hours: My Active Orders 02/01/18 14:36 Chest 2V [CR] Stat
--- NOTE | 2018-02-03 12:53 | CR ---
EXAM DATE: 02/01/18 PATIENT'S AGE: 58 Patient: CL ALMANZA Facility: [place], [place] Site . Site : [id number] Study: XRay Chest [id number]/18/2018 2:54:43 PM Ordering Physician: Doctor Michael Final Report: HISTORY: Chest pain, cough, shortness of breath. TECHNIQUE: Two views of the chest. COMPARISON: No prior. FINDINGS: The cardiac size and pulmonary vasculature are within normal limits. There is no acute lung infiltrate or pulmonary edema. No pneumothorax or pleural effusion. Multiple remote right-sided rib fractures, healed with mild deformity. Mild anterior wedging of a lower thoracic vertebral body may be chronic. Prior cervical fusion. IMPRESSION: No acute cardiopulmonary disease. Dictated by Yvan Major MD @ 02/01/2018 3:31:06 PM Dictated by: Yvan Major MD @ 02/01/2018 15:31:09 (Electronic Signature) Report Signed by Proxy. NEAL
== END 2018-02-01 15:25 | disposition home or self-care (01) ==
LOC: MW.ED 14:08
DX: J20.9 Acute bronchitis, unspecified (principal); Z79.899 Other long term (current) drug therapy; E78.00 Pure hypercholesterolemia, unspecified
CPT/HCPCS: 71046; 71046-26; 93005; 99283-25

== ENCOUNTER 2018-03-11 18:26 | Emergency (ER) | payer MEDICAID ==
[2018-03-11] MEDS ORDERED: Sodium Chloride 0.9% 10 ML Syringe FLUSH PRN (18:39)
[2018-03-11] MEDS ORDERED: Sodium Chloride 0.9% 2.5 ML Syringe FLUSH PRN (18:39)
--- NOTE | 2018-03-11 18:58 | EDM.PDOC ---
<Sanjay Gordon - Last Filed: 03/11/18 19:51> ED HPI GENERAL MEDICAL PROBLEM - General Chief Complaint: Neuro Symptoms/Deficits Stated Complaint: lt sided weakness Time Seen by Provider: 03/11/18 18:55 - History of Present Illness INITIAL COMMENTS - FREE TEXT/NARRATIVE: Patient emergency department course is been unremarkable CT scan of his brain was negative patient's awake alert now in emergency department blood alcohol is 236 off oxygen he has maintained his saturation in the low to mid 90s and has no complaints he is eager for discharge we will arrange discharge with family impression is #1 alcohol abuse #2 medical screening exam - Related Data Allergies Allergy/AdvReac Type Severity Reaction Status Date / Time No Known Allergies Allergy Verified 03/12/18 02:38 Home Meds: Home Meds Aspirin 325 mg PO DAILY tablet 11/04/17 [Rx] Albuterol [Ventolin HFA] 1 puff INH ASDIRECTED PRN 03/11/18 [History] ED ROS GENERAL - Review of Systems Review Of Systems: ROS reveals no pertinent complaints other than HPI. ED EXAM, GENERAL - Physical Exam Exam: See Below (See dictation) Course - Vital Signs Last Recorded V/S: Last Vital Signs Temp 96 F 03/11/18 18:26 Pulse 77 03/11/18 20:09 Resp 20 03/11/18 18:26 BP 133/84 03/11/18 20:09 Pulse Ox 97 03/11/18 20:09 - Orders/Labs/Meds Labs: Laboratory Tests 03/11/18 03/11/18 03/11/18 Range/Units 18:30 19:14 19:14 WBC 7.31 (4.0-11.0) K/uL RBC 5.94 H (4.50-5.90) M/uL Hgb 17.0 (13.0-17.0) g/dL Hct 48.9 (38.0-50.0) % MCV 82.3 (80.0-98.0) fL MCH 28.6 (27.0-32.0) pg MCHC 34.8 (31.0-37.0) g/dL RDW Std Deviation 47.0 (28.0-62.0) fl RDW Coeff of Lola 16 H (11.0-15.0) % Plt Count 180 (150-400) K/uL MPV 9.40 (7.40-12.00) fL Neut % (Auto) 43.3 L (48.0-80.0) % Lymph % (Auto) 43.0 H (16.0-40.0) % [place] % (Auto) 10.5 (0.0-15.0) % Eos % (Auto) 2.9 (0.0-7.0) % Baso % (Auto) 0.3 (0.0-1.5) % Neut # (Auto) 3.2 (1.4-5.7) K/uL Lymph # (Auto) 3.1 H (0.6-2.4) K/uL [place] # (Auto) 0.8 (0.0-0.8) K/uL Eos # (Auto) 0.2 (0.0-0.7) K/uL Baso # (Auto) 0.0 (0.0-0.1) K/uL Nucleated RBC % 0.0 /100WBC Nucleated RBCs # 0 K/uL INR 0.98 APTT 36.6 H (18.6-31.3) SEC Sodium 131 L (136-148) mmol/L Potassium 5.0 (3.5-5.1) mmol/L Chloride 98 (98-107) mmol/L Carbon Dioxide 22.9 (21.0-32.0) mmol/L BUN 4 L (7.0-18.0) mg/dL Creatinine 0.7 L (0.8-1.3) mg/dL Est Cr Clr Drug Dosing TNP Estimated GFR (MDRD) > 60.0 ml/min Glucose 69 L (74-106) mg/dL Calcium 8.5 (8.5-10.1) mg/dL Total Bilirubin 0.3 (0.2-1.0) mg/dL AST 22 (15-37) IU/L ALT 19 (14-63) IU/L Alkaline Phosphatase 83 (46-116) U/L Troponin I < 0.050 (0.000-0.056) ng/mL Total Protein 7.7 (6.4-8.2) g/dL Albumin 4.0 (3.4-5.0) g/dL Globulin 3.7 H (2.0-3.5) g/dL Albumin/Globulin Ratio 1.1 L (1.3-2.8) TSH 3rd Generation 1.48 (0.36-3.74) uIU/mL Urine Opiates Screen (NEGATIVE) Ur Oxycodone Screen (NEGATIVE) Urine Methadone Screen (NEGATIVE) Ur Barbiturates Screen (NEGATIVE) Ur Phencyclidine Scrn (NEGATIVE) Ur Amphetamine Screen (NEGATIVE) U Methamphetamines Scrn (NEGATIVE) U Benzodiazepines Scrn (NEGATIVE) U Cocaine Metab Screen (NEGATIVE) U Marijuana (THC) Screen (NEGATIVE) Ethyl Alcohol 237 mg/dL 03/11/18 Range/Units 19:40 WBC (4.0-11.0) K/uL RBC (4.50-5.90) M/uL Hgb (13.0-17.0) g/dL Hct (38.0-50.0) % MCV (80.0-98.0) fL MCH (27.0-32.0) pg MCHC (31.0-37.0) g/dL RDW Std Deviation (28.0-62.0) fl RDW Coeff of Lola (11.0-15.0) % Plt Count (150-400) K/uL MPV (7.40-12.00) fL Neut % (Auto) (48.0-80.0) % Lymph % (Auto) (16.0-40.0) % [place] % (Auto) (0.0-15.0) % Eos % (Auto) (0.0-7.0) % Baso % (Auto) (0.0-1.5) % Neut # (Auto) (1.4-5.7) K/uL Lymph # (Auto) (0.6-2.4) K/uL [place] # (Auto) (0.0-0.8) K/uL Eos # (Auto) (0.0-0.7) K/uL Baso # (Auto) (0.0-0.1) K/uL Nucleated RBC % /100WBC Nucleated RBCs # K/uL INR APTT (18.6-31.3) SEC Sodium (136-148) mmol/L Potassium (3.5-5.1) mmol/L Chloride (98-107) mmol/L Carbon Dioxide (21.0-32.0) mmol/L BUN (7.0-18.0) mg/dL Creatinine (0.8-1.3) mg/dL Est Cr Clr Drug Dosing Estimated GFR (MDRD) ml/min Glucose (74-106) mg/dL Calcium (8.5-10.1) mg/dL Total Bilirubin (0.2-1.0) mg/dL AST (15-37) IU/L ALT (14-63) IU/L Alkaline Phosphatase (46-116) U/L Troponin I (0.000-0.056) ng/mL Total Protein (6.4-8.2) g/dL Albumin (3.4-5.0) g/dL Globulin (2.0-3.5) g/dL Albumin/Globulin Ratio (1.3-2.8) TSH 3rd Generation (0.36-3.74) uIU/mL Urine Opiates Screen NEGATIVE (NEGATIVE) Ur Oxycodone Screen NEGATIVE (NEGATIVE) Urine Methadone Screen NEGATIVE (NEGATIVE) Ur Barbiturates Screen NEGATIVE (NEGATIVE) Ur Phencyclidine Scrn NEGATIVE (NEGATIVE) Ur Amphetamine Screen NEGATIVE (NEGATIVE) U Methamphetamines Scrn NEGATIVE (NEGATIVE) U Benzodiazepines Scrn NEGATIVE (NEGATIVE) U Cocaine Metab Screen NEGATIVE (NEGATIVE) U Marijuana (THC) Screen POSITIVE (NEGATIVE) Ethyl Alcohol mg/dL Meds: Medications Discontinued Medications Generic Name Dose Route Start Last Admin Trade Name Freq PRN Reason Stop Dose Admin Dextrose/Water 25 ml 03/11/18 19:23 03/11/18 19:45 Dextrose 50% In Water IVPUSH 03/11/18 19:24 25 ml ONETIME ONE Administration Sodium Chloride 10 ml 03/11/18 18:39 Saline Flush FLUSH ASDIRECTED PRN Keep Vein Open Sodium Chloride 2.5 ml 03/11/18 18:39 Saline Flush FLUSH ASDIRECTED PRN Keep Vein Open Departure - Departure Time of Disposition: 19:53 Disposition: Home, Self-Care 01 Condition: Good Clinical Impression: Alcohol abuse, Encounter for medical screening examination - Discharge Information *PRESCRIPTION DRUG MONITORING PROGRAM REVIEWED*: Not Applicable *COPY OF PRESCRIPTION DRUG MONITORING REPORT IN PATIENT LYUDMILA: Not Applicable Instructions: Substance Use Disorder Referrals: PCP,None [Primary Care Provider] - Forms: ED Department Discharge Additional Instructions: The following information is given to patients seen in the emergency department who are being discharged to home. This information is to outline your options for follow-up care. We provide all patients seen in our emergency department with a follow-up referral. The need for follow-up, as well as the timing and circumstances, are variable depending upon the specifics of your emergency department visit. If you don't have a primary care physician on staff, we will provide you with a referral. We always advise you to contact your personal physician following an emergency department visit to inform them of the circumstance of the visit and for follow-up with them and/or the need for any referrals to a consulting specialist. The emergency department will also refer you to a specialist when appropriate. This referral assures that you have the opportunity for followup care with a specialist. All of these measure are taken in an effort to provide you with optimal care, which includes your followup. Under all circumstances we always encourage you to contact your private physician who remains a resource for coordinating your care. When calling for followup care, please make the office aware that this follow-up is from your recent emergency room visit. If for any reason you are refused follow-up, please contact the [facility] emergency department at and asked to speak to the emergency department charge nurse. [facility] [address] [place] [address] Stop drinking as discussed follow-up primary medical doctor and/or clinic above return as needed as discussed <Jaime Talamantes - Last Filed: 03/13/18 08:40> ED HPI GENERAL MEDICAL PROBLEM - General Source of Information: Reports: Patient - History of Present Illness INITIAL COMMENTS - FREE TEXT/NARRATIVE: HISTORY AND PHYSICAL: History of present illness: Patient arrives by private vehicle Patient has been drinking alcohol unknown quantity, on arrival has was unsteady gait and left-sided weakness however he passed out or became unresponsive as soon as he transferred on the gurney in bed 4 I was able to rouse the patient with sternal rub Otherwise he is hemodynamically stable at this time, he appears clinically intoxicated stroke Protocol was called on arrival Review of systems: As per history of present illness and below otherwise all systems reviewed and negative. Past medical history: As per history of present illness and as reviewed below otherwise noncontributory. Surgical history: As per history of present illness and as reviewed below otherwise noncontributory. Social history: No reported history of drug or alcohol abuse. Family history: As per history of present illness and as reviewed below otherwise noncontributory. Physical exam: HEENT: Atraumatic, normocephalic, pupils reactive, negative for conjunctival pallor or scleral icterus, mucous membranes moist, throat clear, neck supple, nontender, trachea midline. Lungs: Clear to auscultation, breath sounds equal bilaterally, chest nontender. Heart: S1S2, regular, negative for clicks, rubs, or JVD. Abdomen: Soft, nondistended, nontender. Negative for masses or hepatosplenomegaly. Negative for costovertebral tenderness. Pelvis: Stable nontender. Genitourinary: Deferred. Rectal: Deferred. Extremities: Atraumatic, negative for cords or calf pain. Neurovascular unremarkable. Neuro: Awake, alert, oriented. Cranial nerves II through XII unremarkable. Cerebellum unremarkable. Motor and sensory unremarkable throughout. Exam nonfocal. Diagnostics: [CBC CMP UA drug screen alcohol level troponin INR CT no contrast Chest 1 view EKG ] Therapeutics: [ liter normal saline bolus ] patient care transferred to dr gordon shortly after arrival, during shift change , imaging and lab pending, disposition per nicolette Impression: [ rule out stroke Clinical alcohol intoxication ] Definitive disposition and diagnosis as appropriate pending reevaluation and review of above. Past Medical History HEENT History: Reports: None Cardiovascular History: Reports: High Cholesterol Respiratory History: Reports: Other (See Below) Other Respiratory History: pneumonia Gastrointestinal History: Reports: None Genitourinary History: Reports: BPH Neurological History: Reports: Concussion, CVA Psychiatric History: Reports: Depression Endocrine/Metabolic History: Reports: None Hematologic History: Reports: None Immunologic History: Reports: None Oncologic (Cancer) History: Reports: None Dermatologic History: Reports: None - Infectious Disease History Infectious Disease History: Reports: None - Past Surgical History Head Surgeries/Procedures: Reports: None Male Surgical History: Reports: None Endocrine Surgical History: Reports: None Other Musculoskeletal Surgeries/Procedures:: plate in neck and broken back Social & Family History - Family History Family Medical History: Noncontributory - Tobacco Use Smoking Status *Q: Current Every Day Smoker Years of Tobacco use: 30 Packs/Tins Daily: 1 - Caffeine Use Caffeine Use: Reports: Coffee, Soda, Tea - Recreational Drug Use Recreational Drug Use: No ED ROS GENERAL - Review of Systems Review Of Systems: See Below ED EXAM, GENERAL - Physical Exam Exam: See Below Course - Orders/Labs/Meds Labs: Laboratory Tests 03/11/18 03/11/18 03/11/18 Range/Units 18:30 19:14 19:14 WBC 7.31 (4.0-11.0) K/uL RBC 5.94 H (4.50-5.90) M/uL Hgb 17.0 (13.0-17.0) g/dL Hct 48.9 (38.0-50.0) % MCV 82.3 (80.0-98.0) fL MCH 28.6 (27.0-32.0) pg MCHC 34.8 (31.0-37.0) g/dL RDW Std Deviation 47.0 (28.0-62.0) fl RDW Coeff of Lola 16 H (11.0-15.0) % Plt Count 180 (150-400) K/uL MPV 9.40 (7.40-12.00) fL Neut % (Auto) 43.3 L (48.0-80.0) % Lymph % (Auto) 43.0 H (16.0-40.0) % [place] % (Auto) 10.5 (0.0-15.0) % Eos % (Auto) 2.9 (0.0-7.0) % Baso % (Auto) 0.3 (0.0-1.5) % Neut # (Auto) 3.2 (1.4-5.7) K/uL Lymph # (Auto) 3.1 H (0.6-2.4) K/uL [place] # (Auto) 0.8 (0.0-0.8) K/uL Eos # (Auto) 0.2 (0.0-0.7) K/uL Baso # (Auto) 0.0 (0.0-0.1) K/uL Nucleated RBC % 0.0 /100WBC Nucleated RBCs # 0 K/uL INR 0.98 APTT 36.6 H (18.6-31.3) SEC Sodium 131 L (136-148) mmol/L Potassium 5.0 (3.5-5.1) mmol/L Chloride 98 (98-107) mmol/L Carbon Dioxide 22.9 (21.0-32.0) mmol/L BUN 4 L (7.0-18.0) mg/dL Creatinine 0.7 L (0.8-1.3) mg/dL Est Cr Clr Drug Dosing TNP Estimated GFR (MDRD) > 60.0 ml/min Glucose 69 L (74-106) mg/dL Calcium 8.5 (8.5-10.1) mg/dL Total Bilirubin 0.3 (0.2-1.0) mg/dL AST 22 (15-37) IU/L ALT 19 (14-63) IU/L Alkaline Phosphatase 83 (46-116) U/L Troponin I < 0.050 (0.000-0.056) ng/mL Total Protein 7.7 (6.4-8.2) g/dL Albumin 4.0 (3.4-5.0) g/dL Globulin 3.7 H (2.0-3.5) g/dL Albumin/Globulin Ratio 1.1 L (1.3-2.8) TSH 3rd Generation 1.48 (0.36-3.74) uIU/mL Urine Opiates Screen (NEGATIVE) Ur Oxycodone Screen (NEGATIVE) Urine Methadone Screen (NEGATIVE) Ur Barbiturates Screen (NEGATIVE) Ur Phencyclidine Scrn (NEGATIVE) Ur Amphetamine Screen (NEGATIVE) U Methamphetamines Scrn (NEGATIVE) U Benzodiazepines Scrn (NEGATIVE) U Cocaine Metab Screen (NEGATIVE) U Marijuana (THC) Screen (NEGATIVE) Ethyl Alcohol 237 mg/dL 03/11/18 Range/Units 19:40 WBC (4.0-11.0) K/uL RBC (4.50-5.90) M/uL Hgb (13.0-17.0) g/dL Hct (38.0-50.0) % MCV (80.0-98.0) fL MCH (27.0-32.0) pg MCHC (31.0-37.0) g/dL RDW Std Deviation (28.0-62.0) fl RDW Coeff of Lola (11.0-15.0) % Plt Count (150-400) K/uL MPV (7.40-12.00) fL Neut % (Auto) (48.0-80.0) % Lymph % (Auto) (16.0-40.0) % [place] % (Auto) (0.0-15.0) % Eos % (Auto) (0.0-7.0) % Baso % (Auto) (0.0-1.5) % Neut # (Auto) (1.4-5.7) K/uL Lymph # (Auto) (0.6-2.4) K/uL [place] # (Auto) (0.0-0.8) K/uL Eos # (Auto) (0.0-0.7) K/uL Baso # (Auto) (0.0-0.1) K/uL Nucleated RBC % /100WBC Nucleated RBCs # K/uL INR APTT (18.6-31.3) SEC Sodium (136-148) mmol/L Potassium (3.5-5.1) mmol/L Chloride (98-107) mmol/L Carbon Dioxide (21.0-32.0) mmol/L BUN (7.0-18.0) mg/dL Creatinine (0.8-1.3) mg/dL Est Cr Clr Drug Dosing Estimated GFR (MDRD) ml/min Glucose (74-106) mg/dL Calcium (8.5-10.1) mg/dL Total Bilirubin (0.2-1.0) mg/dL AST (15-37) IU/L ALT (14-63) IU/L Alkaline Phosphatase (46-116) U/L Troponin I (0.000-0.056) ng/mL Total Protein (6.4-8.2) g/dL Albumin (3.4-5.0) g/dL Globulin (2.0-3.5) g/dL Albumin/Globulin Ratio (1.3-2.8) TSH 3rd Generation (0.36-3.74) uIU/mL Urine Opiates Screen NEGATIVE (NEGATIVE) Ur Oxycodone Screen NEGATIVE (NEGATIVE) Urine Methadone Screen NEGATIVE (NEGATIVE) Ur Barbiturates Screen NEGATIVE (NEGATIVE) Ur Phencyclidine Scrn NEGATIVE (NEGATIVE) Ur Amphetamine Screen NEGATIVE (NEGATIVE) U Methamphetamines Scrn NEGATIVE (NEGATIVE) U Benzodiazepines Scrn NEGATIVE (NEGATIVE) U Cocaine Metab Screen NEGATIVE (NEGATIVE) U Marijuana (THC) Screen POSITIVE (NEGATIVE) Ethyl Alcohol mg/dL
[2018-03-11 19:09] LABS: CHLORIDE,CL 98 mmol/L (98-107); SODIUM,NA 131 mmol/L (136-148)
[2018-03-11] MEDS ORDERED: 50% Dextrose in Water 50 ML Syringe IVPUSH ONE (19:23)
--- NOTE | 2018-03-12 10:36 | CT ---
EXAM DATE: 03/11/18 PATIENT'S AGE: 58 Patient: CL ALMANZA JR Facility: [place], [place] Site Patient ID: [id number]. Site : 1960 Study: CT Head STROKE PROTOCOL [id number] 6:49:27 PM Ordering Physician: Albin Final Report: INDICATION: Stroke protocol. TECHNIQUE: CT head without contrast. COMPARISON: 11/03/2017 FINDINGS: Cortical atrophy is again seen. The ventricles are stable. There is no mass effect or midline shift. There is no loss of dwyer-white differentiation. A small focus of mildly decreased attenuation in the inferior right frontal lobe on image 23 may be related to regional artifact. There is no evidence of an acute intracranial hemorrhage. There is a small focus of apparently increased attenuation in the left supra clinoid carotid on image 23 of series 201, however this area does not appear significantly different compared to the prior study on the coronal reformats. No acute calvarial fracture is seen. Again noted is a chronic deformity of the right orbital floor and a deformity of the left nasal bone. There are few mucosal retention cysts or polyps in the maxillary sinuses and left frontal sinus inferior recess. The mastoid air cells are clear. The visualized orbits are within normal limits. IMPRESSION: No evidence of an acute intracranial hemorrhage, mass effect or loss of dwyer- white differentiation. An apparent small focus of mildly decreased attenuation in the inferior right frontal lobe on 1 image may be artifactual. If clinically indicated, consider MRI evaluation. Dictated by Luis A Villanueva MD @ 03/11/2018 7:34:57 PM Please note that all CT scans at this facility use dose modulation, iterative reconstruction, and/or weight-based dosing when appropriate to reduce radiation dose to as low as reasonably achievable. Dictated by: Luis A Villanueva MD @ 03/11/2018 19:35:03 ----- ADDENDUM ----- The findings were communicated to Dr. Gordon on 03/11/2018 at 7:35 a.m. Dictated by Luis A Villanueva MD @ Mar 11 2018 7:37PM (Electronic Signature) Report Signed by Proxy. NEAL
--- NOTE | 2018-03-12 10:55 | CR ---
EXAM DATE: 03/11/18 PATIENT'S AGE: 58 Patient: CL ALMANZA Facility: [place], [place] Site . Site : 1960 Study: XRay Chest [id number] 7:14:45 PM Ordering Physician: Stna Sandoval Final Report: INDICATION: Stroke TECHNIQUE: Chest 1 views COMPARISON: 02/01/2018 FINDINGS: Cardiovascular and mediastinum: Heart size and vasculature are normal in caliber and appearance. Lungs and pleural spaces: Lungs are clear. No sign of infiltrate or mass. No sign of pleural effusion. No pneumothorax. Bones and soft tissues: No significant findings. IMPRESSION: No acute findings and no significant changes from the prior exam. Dictated by Malik Bauer MD @ Mar 11 2018 8:13PM (Electronic Signature) Report Signed by Proxy. NEAL
== END 2018-03-11 20:20 | disposition home or self-care (01) ==
LOC: MW.ED 18:26
DX: F10.10 Alcohol abuse, uncomplicated (principal); Y90.7 Blood alcohol level of 200-239 mg/100 ml; F17.210 Nicotine dependence, cigarettes, uncomplicated; Z79.82 Long term (current) use of aspirin
CPT/HCPCS: 36415; 70450; 71045; 80053; 80305; 84443; 84484; 85025; 85610; 85730; 93005; 96374; 99285; G0480; J7060

== ENCOUNTER 2018-12-13 23:05 | Observation (INO) | payer SELFPAY ==
[2018-12-13] MEDS ORDERED: Ammonia Inhalant Amp INH ONE (23:20)
--- NOTE | 2018-12-13 23:55 | CR ---
INDICATION: Pelvis injury from trauma TECHNIQUE: Pelvis radiograph 2 views COMPARISON: None FINDINGS: Bone: No acute fractures or aggressive bone lesions are identified. Evaluation of the bilateral femoral necks limited due to foreshortening from external rotation of the leg. Joint: The hip joint is unremarkable. The visualized sacroiliac joints are unremarkable in appearance. The pubic symphysis is normal in appearance. Soft tissue: Unremarkable. The visualized bowel gas pattern of the pelvis is unremarkable in appearance. No radiopaque foreign bodies are seen. IMPRESSIONS: 1. No acute osseous injuries or abnormalities are noted. 2. Evaluation of the bilateral femoral necks limited due to foreshortening from external rotation of the leg. If there is a high clinical index of suspicion of traumatic injury, evaluation with dedicated hip radiographs is recommended. Dictated by Daniele Weiss MD @ 12/13/2018 11:52:32 PM Dictated by: Daniele Weiss MD @ 12/13/2018 23:52:38 (Electronically Signed)
--- NOTE | 2018-12-13 23:55 | CR ---
INDICATION: Chest injury from trauma TECHNIQUE: Chest radiograph 1 view COMPARISON: None FINDINGS: Mediastinum: The mediastinum is normal in appearance. The heart silhouette is normal in size and morphology. Lung: Both lungs are unremarkable in appearance. No sign of pleural effusion seen. No pneumothorax is identified. fractures are noted. Moderate diffuse osteopenia is noted. IMPRESSION: 1. No acute cardiopulmonary disease is seen. Dictated by Daniele Weiss MD @ 12/13/2018 11:53:25 PM Dictated by: Daniele Weiss MD @ 12/13/2018 23:53:35 (Electronically Signed)
--- NOTE | 2018-12-14 00:01 | CT ---
INDICATION: Head injury from trauma TECHNIQUE: CT Head without i.v. contrast. COMPARISON: None FINDINGS: CSF space: The ventricles are normal for age. Brain: No evidence of mass, acute infarction or hemorrhage is seen. No mass-effect or midline shift is seen. The brain parenchyma is otherwise normal in appearance with preservation of the dwyer-white matter junction. Calvarium: The visualized paranasal sinuses are well aerated. The mastoid air cells are clear. The visualized orbits are grossly unremarkable. The calvarium is unremarkable in appearance with no fractures identified. IMPRESSION: 1. No evidence of acute infarction, intracranial hemorrhage, or mass-effect seen. Please note that all CT scans at this facility use dose modulation, iterative reconstruction, and/or weight-based dosing when appropriate to reduce radiation dose to as low as reasonably achievable. Dictated by: Daniele Weiss MD @ 12/13/2018 23:59:35 (Electronically Signed)
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
[2018-12-14 00:19] LABS: CHLORIDE,CL 98 mmol/L (98-107); SODIUM,NA 131 mmol/L (136-148)
[2018-12-14] MEDS ORDERED: MVI, Adult with Vitamin K 10 ML, Thiamine 100 MG, Folic Acid 1 MG in Sodium Chloride 0.... IV ONE ×4 (01:05)
[2018-12-14] MEDS ORDERED: LORazepam 2 MG/ML SDV IVPUSH PRN (03:17)
[2018-12-14] MEDS ORDERED: Lactated Ringers 1,000 ML IV SCH (03:30)
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
--- NOTE | 2018-12-14 11:28 | CR ---
INDICATION: Neck pain post injury. History of neck surgery. There is a metallic plate affixed the anterior aspect of the C5 and C6 vertebral body. There is solidly contiguous appearing interbody bone graft at this level. There is some narrowing of the C3-4 and C4-5 intervertebral disc spaces. At C4-5, there is degenerative endplate sclerosis. There is normal alignment of the cervical thoracic junction. Flexion-extension views have been included. There is no evidence of cervical instability. IMPRESSION: Uncomplicated appearing anterior arthrodesis at the C5-6 level. The degenerative changes described above. Negative for cervical instability with flexion or extension. Dictated by German Chapman MD @ Dec 14 2018 11:10AM Signed by Dr. German Chapman @ Dec 14 2018 11:26AM
[2018-12-14] MEDS: Cyclobenzaprine 10 MG Tab PO SCH ×2 (12:18→15:00)
--- NOTE | 2018-12-14 16:03 | PCM.SN ---
- Free Text/Narrative Note: Radiology reports reviewed. No acute cervical spine injury. Still c/o some neck pain but has also had a fusion. Awake, alert and oriented. Will discharge today. Rx for Flexeril 10mg po TID for 10 days. No refills.
--- NOTE | 2018-12-15 10:38 | CT ---
EXAM DATE: 12/14/18 PATIENT'S AGE: 58 Patient: CL ALMANZA Facility: [facility], [facility] Site Site : Study: CT-Spine Cervical [id number]/29/2019 11:54:04 PM Ordering Physician: CAMILO LAW Final Report: INDICATION: Cervical spine injury from trauma TECHNIQUE: CT cervical spine without i.v. contrast. Coronal and sagittal reformats were obtained. COMPARISON: None FINDINGS: Alignment: Unremarkable. Bone: Mild compression deformities are seen along the superior endplates of C7 and T1. Remote injury of the left 2nd rib is noted. Disc: Anterior spinal fusion with metallic plate is noted at C5-6. Severe degenerative disc narrowing is present at C3-4 and C4-5. The facet joints are unremarkable. Soft tissue: The prevertebral soft tissues are unremarkable in appearance. The visualized lung apices and mediastinum are unremarkable. Moderate to severe distention of the upper thoracic esophagus with air-fluid level is noted. IMPRESSIONS: 1. Mild compression deformities are seen along the superior endplates of C7 and T1. The ages of these findings are indeterminate. 2. Moderate to severe distention of the upper thoracic esophagus with air-fluid level is noted. Findings may be due to esophageal obstruction or reflux. Dictated by Daniele Weiss MD @ 12/14/2018 12:06:49 AM Please note that all CT scans at this facility use dose modulation, iterative reconstruction, and/or weight-based dosing when appropriate to reduce radiation dose to as low as reasonably achievable. Dictated by: Daniele Weiss MD @ 12/14/2018 00:06:52 Signed by: Daniele Weiss MD @12/14/2018 12:06:52 AM (Electronic Signature) Report Signed by Proxy. [facility] CENTERMadison
== END 2018-12-14 16:45 | disposition home or self-care (01) ==
LOC: MW.ED 23:05 → MW.MS 12-14 01:50
PROVIDERS: ADMIT Surgery; ATTEND Surgery
DX: S14.109A Unspecified injury at unspecified level of cervical spinal cord, initial encounter (principal); F10.10 Alcohol abuse, uncomplicated; F17.220 Nicotine dependence, chewing tobacco, uncomplicated; E78.00 Pure hypercholesterolemia, unspecified; Z79.82 Long term (current) use of aspirin; Y90.8 Blood alcohol level of 240 mg/100 ml or more; V13.4XXA Pedal cycle driver injured in collision with car, pick-up truck or van in traffic accident, initial encounter
CPT/HCPCS: 36415; 70450; 71045; 72052; 72125; 72170; 80053; 80305; 81003; 84484; 85025; 85610; 93005; 96374; 99285; A9270; G0480; J3411; J7040; J7120; G0378

== ENCOUNTER 2019-01-13 13:33 | Emergency (ER) | payer OTHER ==
[2019-01-13] MEDS ORDERED: Sodium Chloride 0.9% 1,000 ML IV SCH (13:45)
--- NOTE | 2019-01-13 14:09 | CT ---
INDICATION: Left-sided weakness. History of stroke. TECHNIQUE: CT head without contrast. COMPARISON: 12/13/2018. FINDINGS: CSF spaces: Within normal limits for age. Brain parenchyma and extra-axial spaces: The dwyer-white differentiation is normal. No sign of mass, hemorrhage, or midline shift. No extra-axial fluid collection. Skull base and calvarium: The visualized paranasal sinuses and mastoid air cells demonstrate no acute or significant findings. The visualized orbits are grossly unremarkable. No skull fractures. IMPRESSION: Unremarkable noncontrast head CT. No sign of acute CVA or hemorrhage. Please note that all CT scans at this facility use dose modulation, iterative reconstruction, and/or weight-based dosing when appropriate to reduce radiation dose to as low as reasonably achievable. Dictated by Malik Bauer MD @ Jan 13 2019 2:00PM Signed by Dr. Malik Bauer @ Jan 13 2019 2:08PM
[2019-01-13 14:44] LABS: BLOOD UREA NITROGEN,BUN 5 mg/dL (7.0-18.0); CARBON DIOXIDE,CO2 25.4 mmol/L (21.0-32.0); CHLORIDE,CL 99 mmol/L (98-107); GLUCOSE RANDOM 102 mg/dL (74-106); POTASSIUM,K 4.2 mmol/L (3.5-5.1); SODIUM,NA 134 mmol/L (136-148)
--- NOTE | 2019-01-13 15:00 | CR ---
EXAMINATION: Portable chest radiograph. HISTORY: Shortness of breath. Comparison: 12/13/2018. FINDINGS: The trachea is midline. The cardiomediastinal silhouette is within normal limits. No pulmonary infiltrates, effusions or pneumothorax. Old bilateral rib fractures are noted. IMPRESSION: No acute cardiopulmonary process.
--- NOTE | 2019-01-13 15:10 | CR ---
EXAMINATION: Pelvis HISTORY: Pain COMPARISON: None TECHNIQUE: AP view FINDINGS: There is no acute osseous abnormality, dislocation, or fracture. Bone mineralization and joint spaces are preserved. The iliopectineal lines are intact. SI joints are symmetric. Bone mineralization is normal. IMPRESSION: No acute osseous abnormality identified.
--- NOTE | 2019-01-13 16:36 | CR ---
INDICATION: Pain TECHNIQUE: Cervical spine 2 view. COMPARISON: Since 12/14/2018 FINDINGS: Bones: Alignment is normal. No fractures or significant bone lesions. Joints: Degenerative changes C3 through C5.. Anterior fixation hardware C5-C6. Soft tissues: Unremarkable. IMPRESSION: Degenerative changes C3 through C5. Anterior fixation hardware C5-C6. Dictated by Jae Neri MD @ 01/13/2019 4:34:02 PM Dictated by: Jae Neri MD @ 01/13/2019 16:34:08 (Electronically Signed)
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
== END 2019-01-13 17:12 | disposition home or self-care (01) ==
LOC: MW.ED 13:33
DX: F10.229 Alcohol dependence with intoxication, unspecified (principal); Y90.7 Blood alcohol level of 200-239 mg/100 ml; M54.2 Cervicalgia; E78.00 Pure hypercholesterolemia, unspecified; Z86.73 Personal history of transient ischemic attack (TIA), and cerebral infarction without residual deficits; Z87.891 Personal history of nicotine dependence; W10.9XXA Fall (on) (from) unspecified stairs and steps, initial encounter
CPT/HCPCS: 36415; 70450; 71045; 72040; 72170; 80053; 81003; 84484; 85025; 85610; 93005; 96360; 96361; 99284; G0480; J7040

== ENCOUNTER 2019-01-25 21:11 | Emergency (ER) | payer SELFPAY ==
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
[2019-01-25] MEDS ORDERED: Ketorolac 60 MG/2 ML SDV IM ONE (22:47)
--- NOTE | 2019-01-25 22:51 | CR ---
INDICATION: Pain/shortness of breath. INDICATION: Pain, shortness of breath TECHNIQUE: Chest 1 view. COMPARISON: 01/13/2019 FINDINGS: Cardiovascular and mediastinum: Heart size and vasculature are normal in caliber and appearance. Mediastinum is within normal limits. Lungs and pleural space: Lungs are clear. No sign of infiltrate or mass. No sign of pleural effusion. No pneumothorax. Bones and soft tissues: Remote right mid rib fractures. Remote left midclavicle fracture. IMPRESSION: Unremarkable chest. Dictated by Jae Neri MD @ 01/25/2019 10:50:04 PM Dictated by: Jae Neri MD @ 01/25/2019 22:50:30 (Electronically Signed)
--- NOTE | 2019-01-25 22:51 | CR ---
INDICATION: Pain TECHNIQUE: Single view AP pelvis COMPARISON: None FINDINGS: Bones: Alignment is normal. No fractures or bone lesions. Joint spaces: Unremarkable. Soft tissues: Unremarkable. IMPRESSION: Negative. Dictated by Jae Neri MD @ 01/25/2019 10:48:51 PM Dictated by: Jae Neri MD @ 01/25/2019 22:48:58 (Electronically Signed)
== END 2019-01-25 23:03 | disposition home or self-care (01) ==
LOC: MW.ED 21:11
DX: M54.2 Cervicalgia (principal); F10.10 Alcohol abuse, uncomplicated; I69.354 Hemiplegia and hemiparesis following cerebral infarction affecting left non-dominant side; F17.210 Nicotine dependence, cigarettes, uncomplicated; F17.220 Nicotine dependence, chewing tobacco, uncomplicated; Z79.899 Other long term (current) drug therapy; V18.2XXA Unspecified pedal cyclist injured in noncollision transport accident in nontraffic accident, initial encounter
CPT/HCPCS: 70450; 71045; 72125; 72170; 82962; 96372; 99284; J1885

== ENCOUNTER 2019-03-13 21:37 | Emergency (ER) | payer SELFPAY ==
[2019-03-13] MEDS ORDERED: Ketorolac 60 MG/2 ML SDV IM ONE (21:59)
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
== END 2019-03-13 23:40 | disposition home or self-care (01) ==
LOC: MW.ED 21:37
DX: M54.5 Low back pain (principal); F17.210 Nicotine dependence, cigarettes, uncomplicated
CPT/HCPCS: 72100; 96372; 99283; J1885; J2360

== ENCOUNTER 2024-07-04 17:12 | Emergency (ER) | payer SELFPAY ==
[2024-07-04] MEDS: LORazepam 2 MG/ML SDV IVPUSH ONE ×2 (17:56→19:51)
[2024-07-04] MEDS: Sodium Chloride 0.9% 1,000 ML IV ONE (17:57)
[2024-07-04 18:34] LABS: BASOPHILS ABSOLUTE AUTO 0.04 K/uL (0.00-0.20); BASOPHILS PERCENT AUTO 0.7 % (0.0-1.0); EOSINOPHILS ABSOLUTE AUTO 0.03 K/uL (0.00-0.45); EOSINOPHILS PERCENT AUTO 0.5 % (0.0-6.0); HEMATOCRIT 46.3 % (42.0-52.0); HEMOGLOBIN 14.8 g/dL (14.0-18.0); IMMATURE GRAN ABSOLUTE AUTO 0.01 K/uL (0.00-0.05); IMMATURE GRAN PERCENT AUTO 0.2 % (0.0-0.4); LYMPHOCYTES PERCENT AUTO 27.9 % (24.0-44.0); MEAN CORPUSCULAR HEMOGLOBIN 26.1 pg (28.0-32.0); MEAN CORPUSCULAR VOLUME 81.7 fL (83.0-99.0); MEAN PLATELET VOLUME 9.5 fL (9.4-12.4); MONOCYTES ABSOLUTE AUTO 0.56 K/uL (0.00-0.80); MONOCYTES PERCENT AUTO 9.2 % (0.0-8.0); NEUTROPHILS ABSOLUTE AUTO 3.76 K/uL (1.80-7.70); NEUTROPHILS PERCENT AUTO 61.5 % (41.0-71.0); PLATELET COUNT,PLT 265 K/uL (150-400); RED BLOOD CELL COUNT 5.67 M/uL (4.52-5.90)
[2024-07-04 18:54] LABS: AMPHETAMINES SCREEN, URINE NEGATIVE (CUTOFF=500); BARBITURATE SCREEN,URINE NEGATIVE (CUTOFF=200); BENZODIAZEPINES SCREEN,URINE NEGATIVE (CUTOFF=150); BUPRENORPHINE SCREEN,URINE NEGATIVE (CUTOFF=10); METHADONE SCREEN, URINE NEGATIVE (CUTOFF=200); METHAMPHETAMINES SCREEN, URINE NEGATIVE (CUTOFF=500); OXYCODONE SCREEN,URINE NEGATIVE (CUT0FF=100); PCP SCREEN,URINE NEGATIVE (CUTOFF=25); THC SCREEN,URINE 20 NG/ML PRESUMPTIVE POSITIVE (CUTOFF=50)
[2024-07-04 19:20] LABS: A/G RATIO 1.1 (0.9-1.6); ACETAMINOPHEN <2.0 ug/mL; ALANINE AMINOTRANSFERASE,ALT 18 IU/L (14-63); ALBUMIN 3.5 g/dL (3.4-5.0); ALKALINE PHOSPHATASE 80 U/L (46-116); ASPARTATE AMNIOTRANSFERASE,AST 15 IU/L (15-37); BILIRUBIN TOTAL 0.2 mg/dL (0.2-1.0); BLOOD UREA NITROGEN,BUN 11 mg/dL (7.0-18.0); CALCIUM 8.3 mg/dL (8.5-10.1); CARBON DIOXIDE,CO2 25.7 mmol/L (21.0-32.0); CHLORIDE,CL 103 mmol/L (98-107); EST CRCL DRUG DOSING (CG) 71.61 mL/min; ETHANOL BLOOD MEDICAL 235 mg/dL; GLUCOSE RANDOM 103 mg/dL (74-106); MAGNESIUM 1.5 mg/dL (1.8-2.4); POTASSIUM,K 3.3 mmol/L (3.5-5.1); PROTEIN TOTAL,TP 6.8 g/dL (6.4-8.2); SALICYLATE 2.3 mg/dL (0.0-20.0); SODIUM,NA 138 mmol/L (136-148); T3 FREE 2.46 pg/mL (2.18-3.98); T4 FREE 0.82 ng/dL (0.76-1.46); TSH ULTRASENSITIVE 2.48 uIU/mL (0.36-3.74)
[2024-07-04 19:26] LABS: ESTIMATED GFR 85 mL/min (>60)
[2024-07-05] MEDS: Acetaminophen 325 MG Tab PO ONE (01:11)
[2024-07-05] MEDS: Haloperidol Lactate 5 MG/ML SDV IM ONE (08:38)
[2024-07-05] MEDS: Acetaminophen 500 MG Tab PO ONE (08:40)
== END 2024-07-05 08:58 ==
LOC: MW.ED 17:12
DX: R45.851 Suicidal ideations (principal); F10.10 Alcohol abuse, uncomplicated; Z86.73 Personal history of transient ischemic attack (TIA), and cerebral infarction without residual deficits; Z88.0 Allergy status to penicillin; Z79.899 Other long term (current) drug therapy; Z75.8 Other problems related to medical facilities and other health care; Y90.7 Blood alcohol level of 200-239 mg/100 ml
CPT/HCPCS: 36415; 80053; 80143; 80179; 80305; 80307; 83735; 84439; 84443; 84481; 85025; 87428; 96361; 96374; 96376; 99285; A9270; J2060; J7030; 99284

== ENCOUNTER 2024-11-27 16:24 | Emergency (ER) | payer MEDICAID | END 2024-11-27 16:48 | disposition left against medical advice (07) | LOC: MW.ED 16:24 | DX: Z53.21 Procedure and treatment not carried out due to patient leaving prior to being seen by health care provider (principal) ==

== ENCOUNTER 2024-12-07 15:04 | Emergency (ER) | payer MEDICAID ==
[2024-12-07 15:33] LABS: BASOPHILS ABSOLUTE AUTO 0.05 K/uL (0.00-0.20); BASOPHILS PERCENT AUTO 0.8 % (0.0-1.0); EOSINOPHILS PERCENT AUTO 1.7 % (0.0-6.0); HEMATOCRIT 48.1 % (42.0-52.0); HEMOGLOBIN 15.9 g/dL (14.0-18.0); IMMATURE GRAN ABSOLUTE AUTO 0.01 K/uL (0.00-0.05); IMMATURE GRAN PERCENT AUTO 0.2 % (0.0-0.4); LYMPHOCYTES ABSOLUTE AUTO 2.01 K/uL (1.00-4.80); MEAN CORPUSCULAR HEMOGLOBIN 26.2 pg (28.0-32.0); MEAN CORPUSCULAR HGB CONC 33.1 g/dL (32.0-36.0); MEAN CORPUSCULAR VOLUME 79.4 fL (83.0-99.0); MEAN PLATELET VOLUME 9.8 fL (9.4-12.4); MONOCYTES PERCENT AUTO 10.2 % (0.0-8.0); NEUTROPHILS ABSOLUTE AUTO 3.14 K/uL (1.80-7.70); NEUTROPHILS PERCENT AUTO 53.1 % (41.0-71.0); PLATELET COUNT,PLT 215 K/uL (150-400); RED BLOOD CELL COUNT 6.06 M/uL (4.52-5.90); WHITE BLOOD CELL COUNT,WBC 5.91 K/uL (3.9-11.3)
[2024-12-07 15:42] LABS: APPEARANCE,URINE CLEAR; BILIRUBIN,URINE NEGATIVE (NEGATIVE); COLOR,URINE YELLOW; GLUCOSE,URINE NEGATIVE (NEGATIVE); KETONES,URINE NEGATIVE (NEGATIVE); LEUKOCYTE ESTERASE,URINE NEGATIVE (NEGATIVE); NITRITE,URINE NEGATIVE (NEGATIVE); OCCULT BLOOD,URINE NEGATIVE (NEGATIVE); PH,URINE 5.5 (5.0-8.0); PROTEIN,URINE NEGATIVE (NEGATIVE); UROBILINOGEN,URINE 0.2 EU/dL (<2.0)
[2024-12-07 15:52] LABS: AMPHETAMINES SCREEN, URINE NEGATIVE (CUTOFF=500); BARBITURATE SCREEN,URINE NEGATIVE (CUTOFF=200); BENZODIAZEPINES SCREEN,URINE NEGATIVE (CUTOFF=150); BUPRENORPHINE SCREEN,URINE NEGATIVE (CUTOFF=10); METHADONE SCREEN, URINE NEGATIVE (CUTOFF=200); METHAMPHETAMINES SCREEN, URINE NEGATIVE (CUTOFF=500); OXYCODONE SCREEN,URINE NEGATIVE (CUT0FF=100); PCP SCREEN,URINE NEGATIVE (CUTOFF=25); THC SCREEN,URINE 20 NG/ML PRESUMPTIVE POSITIVE (CUTOFF=50)
[2024-12-07] MEDS: Acetaminophen 500 MG Tab PO ONE (15:55)
[2024-12-07] MEDS: Ibuprofen 600 MG Tab PO ONE (15:56)
[2024-12-07 16:08] LABS: A/G RATIO 1.3 (0.9-1.6); ACETAMINOPHEN <2.0 ug/mL; ALANINE AMINOTRANSFERASE,ALT 11 IU/L (14-63); ALBUMIN 4.2 g/dL (3.4-5.0); ALKALINE PHOSPHATASE 137 U/L (46-116); ASPARTATE AMNIOTRANSFERASE,AST 20 IU/L (15-37); BILIRUBIN TOTAL 0.3 mg/dL (0.2-1.0); BLOOD UREA NITROGEN,BUN 9 mg/dL (7.0-18.0); CALCIUM 9.1 mg/dL (8.5-10.1); CARBON DIOXIDE,CO2 26.2 mmol/L (21.0-32.0); CHLORIDE,CL 98 mmol/L (98-107); EST CRCL DRUG DOSING (CG) 76.59 mL/min; ETHANOL BLOOD MEDICAL 183 mg/dL; GLUCOSE RANDOM 70 mg/dL (74-106); MAGNESIUM 1.9 mg/dL (1.8-2.4); POTASSIUM,K 3.9 mmol/L (3.5-5.1); PROTEIN TOTAL,TP 7.5 g/dL (6.4-8.2); SALICYLATE 2.4 mg/dL (0.0-20.0); SODIUM,NA 132 mmol/L (136-148); TSH ULTRASENSITIVE 1.81 uIU/mL (0.36-3.74)
[2024-12-07 16:11] LABS: ESTIMATED GFR 85 mL/min (>60)
[2024-12-07] MEDS: Sodium Chloride 0.9% 1,000 ML IV ONE (21:29)
[2024-12-08] MEDS: Sodium Chloride 0.9% 1,000 ML IV ONE (06:14)
== END 2024-12-08 11:15 | disposition home or self-care (01) ==
LOC: MW.ED 15:04
DX: R45.851 Suicidal ideations (principal); F10.10 Alcohol abuse, uncomplicated; Z88.0 Allergy status to penicillin; Z88.8 Allergy status to other drugs, medicaments and biological substances
CPT/HCPCS: 36415; 80053; 80143; 80179; 80305; 80307; 81003; 83735; 84443; 85025; 96360; 99284; A9270; J7030